=== PATIENT | female | born 1965 | race Caucasian/White ===

== ENCOUNTER → 2022-08-03 | Outpatient (CLI) | payer SELFPAY | END | disposition home or self-care (01) | LOC: LAB 15:19 → LAB SHORT 15:19 | PROVIDERS: Nurse Practitioner Family | DX: Z12.4 Encounter for screening for malignant neoplasm of cervix (principal) | CPT/HCPCS: 87624; G0145 ==

== ENCOUNTER → 2022-12-22 | Outpatient (CLI) | payer SELFPAY ==
[2022-12-25 00:08] LABS: CHLAMYDIA TRACHOMATIS, NAA Negative (Negative); HPV 16 Negative (Negative); HPV 18 Negative (Negative); HPV OTHER HR TYPES Negative (Negative)
== END ==
LOC: LAB SHORT 14:15 → LAB 14:15
PROVIDERS: Nurse Practitioner Family
DX: Z12.4 Encounter for screening for malignant neoplasm of cervix (principal)
CPT/HCPCS: 87491; 87591; 87624; G0145

== ENCOUNTER → 2024-05-28 | Outpatient (CLI) | payer OTHER | LOC: LAB 09:58 → LAB SHORT 09:58 | DX: R35.0 Frequency of micturition (principal); R10.9 Unspecified abdominal pain; R39.15 Urgency of urination | CPT/HCPCS: 87086 ==